=== PATIENT | female | born 2000 | race African-American/Black ===

== ENCOUNTER 2022-03-27 14:38 | Emergency (ER) | payer MEDICAID ==
[~2022-03-27] VITALS: Ht 162.6 cm; Wt 57.0 kg
[2022-03-27 14:47] VITALS: BP 90/53
[2022-03-27] MEDS ORDERED: BACITRACIN TOP OINT 1 UD PKG TOP ONE (17:45)
[2022-03-27] MEDS ORDERED: LIDOCAINE 2%HCL (LOCAL ANESTH.) INJ 20ML MDV ID ONE (17:45)
[2022-03-27] MEDS ORDERED: CEFD300C2 PO (18:18)
[2022-03-27] MEDS ORDERED: NAPR375T27 PO (18:18)
== END 2022-03-27 18:24 | disposition home or self-care (01) ==
LOC: ER 14:42
DX: S81.012A Laceration without foreign body, left knee, initial encounter (principal); W25.XXXA Contact with sharp glass, initial encounter; Y93.89 Activity, other specified; Y92.89 Other specified places as the place of occurrence of the external cause; Y99.8 Other external cause status
CPT/HCPCS: 12002; 93005